=== PATIENT | male | born 1955 | race Two or more races ===

== ENCOUNTER 2018-11-20 11:35 | Inpatient (IN) | payer OTHER ==
[~2018-11-20] VITALS: Ht 170.2 cm; Wt 71.2 kg
[2018-11-28] MEDS ORDERED: ZANTAC150 M3 (09:20)
[2018-11-28] MEDS ORDERED: OMEPRAZOLE20 MG (09:20)
== END 2018-12-05 17:29 | disposition home or self-care (01) | DRG 330 ==
LOC: SURG 11-26 11:30 → O/R 12-03 04:40 → RECOVERY 12-03 11:30 → SURG 12-03 16:20
PROVIDERS: ADMIT Colon & Rectal Surgery
PROC: 0DTN4ZZ Resection of Sigmoid Colon, Percutaneous Endoscopic Approach (ICD-10-PCS; principal; 2018-12-03 13:15)
DX: K57.32 Diverticulitis of large intestine without perforation or abscess without bleeding (principal); K92.1 Melena; K21.9 Gastro-esophageal reflux disease without esophagitis

== ENCOUNTER 2020-01-08 07:06 | Day surgery (SDC) | payer OTHER ==
[~2020-01-08 07:06] MED LIST: OMEPRAZOLE20 MG; ZANTAC150 M3
== END 2020-01-08 14:35 | disposition home or self-care (01) ==
LOC: AMB-ENDOS 07:06
PROVIDERS: ATTEND Colon & Rectal Surgery
DX: K57.32 Diverticulitis of large intestine without perforation or abscess without bleeding (principal); K64.1 Second degree hemorrhoids; Z20.828 Contact with and (suspected) exposure to other viral communicable diseases